=== PATIENT | male | born 1965 | race Native Hawaiian/Other Pacific Islander ===

== ENCOUNTER 2017-10-01 11:54 | Outpatient (CLI) | payer OTHER | END 2017-10-01 22:50 | disposition home or self-care (01) | LOC: RAD 11:54 | DX: M47.896 Other spondylosis, lumbar region (principal); Z02.71 Encounter for disability determination ==

== ENCOUNTER 2018-12-10 12:55 | Outpatient (CLI) | payer OTHER ==
[~2018-12-10] VITALS: Ht 177.8 cm; Wt 103.0 kg
[2018-12-10 13:10] VITALS: BP 147/94; TEMP 98.4
[2018-12-10 13:33] LABS: POTASSIUM 3.6 mmol/L (3.6-5.2); SODIUM 139 mmol/L (136-145)
== END 2018-12-10 14:30 | disposition home or self-care (01) ==
LOC: INF 12:55
PROVIDERS: Family Medicine
DX: E86.0 Dehydration (principal)
CPT/HCPCS: 36591; 80053; 82550; 82553; 84484; 96360

== ENCOUNTER 2019-08-15 01:21 | Emergency (ER) | payer OTHER ==
[~2019-08-15] VITALS: Ht 177.8 cm; Wt 106.6 kg
[2019-08-15 02:38] VITALS: BP 177/117; TEMP 98.2
== END 2019-08-15 02:38 | disposition home or self-care (01) ==
LOC: ED 01:21
DX: L03.116 Cellulitis of left lower limb (principal); L03.115 Cellulitis of right lower limb
CPT/HCPCS: 96372; 99283; J0696; J1200

== ENCOUNTER 2019-11-24 10:29 | Outpatient (CLI) | payer OTHER | END 2019-11-24 22:04 | disposition home or self-care (01) | LOC: RAD 10:29 | DX: S49.91XA Unspecified injury of right shoulder and upper arm, initial encounter (principal) ==

== ENCOUNTER 2019-11-25 18:17 | Emergency (ER) | payer OTHER ==
[~2019-11-25] VITALS: Ht 177.8 cm; Wt 104.3 kg
[2019-11-25 19:25] VITALS: BP 154/88; TEMP 98.2
== END 2019-11-25 19:25 | disposition home or self-care (01) ==
LOC: ED 18:17
DX: I10 Essential (primary) hypertension (principal); L02.416 Cutaneous abscess of left lower limb; B95.7 Other staphylococcus as the cause of diseases classified elsewhere
CPT/HCPCS: 99283

== ENCOUNTER 2020-02-06 11:00 | Emergency (ER) | payer OTHER ==
[~2020-02-06] VITALS: Ht 177.8 cm; Wt 102.1 kg
[2020-02-06 12:18] LABS: PLATELET COUNT 235 K/uL (142-355)
[2020-02-06 12:22] LABS: POTASSIUM 3.3 mmol/L (3.6-5.2)
[2020-02-06 16:07] VITALS: BP 145/82; TEMP 98
== END 2020-02-06 16:09 | disposition home or self-care (01) ==
LOC: ED 11:00
PROVIDERS: Family Medicine
PROC: 0H9KXZZ Drainage of Right Lower Leg Skin, External Approach (ICD-10-PCS; principal; 2020-02-06)
DX: L02.415 Cutaneous abscess of right lower limb (principal); R53.83 Other fatigue; E87.6 Hypokalemia
CPT/HCPCS: 36415; 80053; 81000; 82150; 83605; 83690; 85027; 87040; 87070; 87077; 87185; 87186; 87205; 96360; 96365; 99284; J2543; Q9963

== ENCOUNTER 2020-04-07 14:15 | Emergency (ER) | payer OTHER ==
[~2020-04-07] VITALS: Ht 177.8 cm; Wt 102.1 kg
[2020-04-07 15:38] VITALS: BP 139/94; TEMP 98.7
== END 2020-04-07 15:38 | disposition home or self-care (01) ==
LOC: ED 14:15
DX: L01.09 Other impetigo (principal)
CPT/HCPCS: 99282

== ENCOUNTER 2020-06-07 12:05 | Emergency (ER) | payer OTHER ==
[~2020-06-07] VITALS: Ht 177.8 cm; Wt 101.6 kg
[2020-06-07 13:04] VITALS: BP 169/89; TEMP 98
== END 2020-06-07 13:59 | disposition home or self-care (01) ==
LOC: ED 12:05
DX: R53.1 Weakness (principal)
CPT/HCPCS: 99281

== ENCOUNTER 2020-06-21 11:21 | Emergency (ER) | payer OTHER ==
[~2020-06-21] VITALS: Ht 177.8 cm; Wt 101.6 kg
[2020-06-21 11:50] LABS: PLATELET COUNT 138 K/uL (142-355)
[2020-06-21 11:59] LABS: POTASSIUM 4.2 mmol/L (3.6-5.2); SODIUM 132 mmol/L (136-145)
[2020-06-21 15:45] VITALS: BP 146/79; TEMP 98.9
== END 2020-06-21 15:45 | disposition home or self-care (01) ==
LOC: ED 11:21
PROVIDERS: Emergency Medicine Emergency Medical Services
DX: U07.1 COVID-19 (principal); K52.89 Other specified noninfective gastroenteritis and colitis; J20.8 Acute bronchitis due to other specified organisms; F17.210 Nicotine dependence, cigarettes, uncomplicated
CPT/HCPCS: 80053; 82150; 83690; 84484; 85027; 85379; 87040; 87502; 87635; 96361; 96365; 96375; 99284; J0696; J2270; J2405; J2930; J3490; Q9963; U0003

== ENCOUNTER 2020-09-01 23:42 | Emergency (ER) | payer OTHER ==
[~2020-09-01] VITALS: Ht 177.8 cm; Wt 101.6 kg
[2020-09-01 23:56] VITALS: BP 135/86; TEMP 98.4
[2020-09-02 01:02] LABS: PLATELET COUNT 165 K/uL (142-355)
[2020-09-02 01:09] LABS: POTASSIUM 3.7 mmol/L (3.6-5.2)
== END 2020-09-02 02:56 | disposition home or self-care (01) ==
LOC: ED 23:42
PROVIDERS: Family Medicine
DX: M62.82 Rhabdomyolysis (principal); E86.0 Dehydration
CPT/HCPCS: 36415; 80053; 82550; 83605; 85027; 96360; 96375; 99284; J1885; J2060

== ENCOUNTER 2020-11-12 11:56 | Outpatient (CLI) | payer OTHER | END 2020-11-12 20:07 | disposition home or self-care (01) | LOC: RAD 11:56 | PROVIDERS: ATTEND Nurse Practitioner Family | DX: M77.32 Calcaneal spur, left foot (principal) ==

== ENCOUNTER 2021-01-10 00:55 | Emergency (ER) | payer OTHER ==
[~2021-01-10] VITALS: Ht 177.8 cm; Wt 107.5 kg
[2021-01-10 02:44] VITALS: BP 138/90; TEMP 98
== END 2021-01-10 02:44 | disposition home or self-care (01) ==
LOC: ED 00:55
DX: S50.862A Insect bite (nonvenomous) of left forearm, initial encounter (principal); S50.861A Insect bite (nonvenomous) of right forearm, initial encounter; S80.862A Insect bite (nonvenomous), left lower leg, initial encounter; S80.861A Insect bite (nonvenomous), right lower leg, initial encounter; L23.7 Allergic contact dermatitis due to plants, except food; W57.XXXA Bitten or stung by nonvenomous insect and other nonvenomous arthropods, initial encounter; Y92.89 Other specified places as the place of occurrence of the external cause
CPT/HCPCS: 96372; 99284; J0696; J1200; J2930

== ENCOUNTER 2021-02-23 11:47 | Emergency (ER) | payer OTHER ==
[~2021-02-23] VITALS: Ht 177.8 cm; Wt 107.5 kg
[2021-02-23 11:56] VITALS: TEMP 96.8
[2021-02-23 12:45] VITALS: BP 144/84
== END 2021-02-23 12:48 | disposition home or self-care (01) ==
LOC: ED 11:47
DX: S20.469A Insect bite (nonvenomous) of unspecified back wall of thorax, initial encounter (principal); S30.860A Insect bite (nonvenomous) of lower back and pelvis, initial encounter; S80.862A Insect bite (nonvenomous), left lower leg, initial encounter; S80.861A Insect bite (nonvenomous), right lower leg, initial encounter; W57.XXXA Bitten or stung by nonvenomous insect and other nonvenomous arthropods, initial encounter; Y92.098 Other place in other non-institutional residence as the place of occurrence of the external cause
CPT/HCPCS: 99281

== ENCOUNTER 2021-03-25 02:05 | Emergency (ER) | payer OTHER ==
[~2021-03-25] VITALS: Ht 177.8 cm; Wt 102.1 kg
[2021-03-25 03:15] VITALS: BP 178/11; TEMP 98.2
== END 2021-03-25 03:15 | disposition home or self-care (01) ==
LOC: ED 02:05
DX: L03.818 Cellulitis of other sites (principal); I10 Essential (primary) hypertension; F43.9 Reaction to severe stress, unspecified
CPT/HCPCS: 96372; 99283; J0696

== ENCOUNTER 2021-11-04 19:13 | Emergency (ER) | payer OTHER ==
[~2021-11-04] VITALS: Ht 179.1 cm; Wt 98.0 kg
[2021-11-04] MEDS ORDERED: LISI5TAB10 PO (19:34)
[2021-11-04 19:52] LABS: PLATELET COUNT 202 K/uL (142-355)
[2021-11-04 20:01] LABS: POTASSIUM 3.2 mmol/L (3.6-5.2)
[2021-11-04 20:11] LABS: PARTIAL THROMBOPLASTIN TIME 25.2 SECONDS (24.5-33.6)
[2021-11-04 22:00] VITALS: BP 132/90; TEMP 98.1
== END 2021-11-04 22:00 | disposition home or self-care (01) ==
LOC: ED 19:13
PROVIDERS: Hospitalist
DX: E86.0 Dehydration (principal); R39.2 Extrarenal uremia; E87.6 Hypokalemia
CPT/HCPCS: 36415; 80053; 81000; 82550; 83880; 84484; 85027; 85610; 85730; 93005; 96360; 99284

== ENCOUNTER 2021-11-18 06:57 | Emergency (ER) | payer OTHER ==
[~2021-11-18] VITALS: Ht 179.1 cm; Wt 98.0 kg
[~2021-11-18 06:57] MED LIST: LISI5TAB10 PO
[2021-11-18 07:01] VITALS: BP 177/112; TEMP 97.5
[2021-11-18 07:37] LABS: PLATELET COUNT 190 K/uL (142-355)
== END 2021-11-18 08:00 | disposition home or self-care (01) ==
LOC: ED 06:57
PROVIDERS: Emergency Medicine
DX: F32.89 Other specified depressive episodes (principal); R21 Rash and other nonspecific skin eruption; M25.59 Pain in other specified joint
CPT/HCPCS: 36415; 80048; 80307; 85027; 99283

== ENCOUNTER 2022-05-12 23:21 | Emergency (ER) | payer OTHER ==
[~2022-05-12] VITALS: Ht 179.1 cm; Wt 104.3 kg
[2022-05-12 23:30] VITALS: BP 161/109; TEMP 97.3
== END 2022-05-13 00:57 | disposition left against medical advice (07) ==
LOC: ED 23:21
DX: Z53.29 Procedure and treatment not carried out because of patient's decision for other reasons (principal); M25.571 Pain in right ankle and joints of right foot; W18.09XA Striking against other object with subsequent fall, initial encounter; Y92.89 Other specified places as the place of occurrence of the external cause
CPT/HCPCS: 99283

== ENCOUNTER 2022-06-17 10:14 | Emergency (ER) | payer OTHER ==
[~2022-06-17] VITALS: Ht 179.1 cm; Wt 104.3 kg
[2022-06-17 10:21] VITALS: TEMP 97.9
[2022-06-17 11:11] LABS: PLATELET COUNT 230 K/uL (142-355)
[2022-06-17 11:18] LABS: POTASSIUM 4.6 mmol/L (3.6-5.2)
[2022-06-17 11:24] LABS: PARTIAL THROMBOPLASTIN TIME 27.1 SECONDS (24.5-33.6)
[2022-06-17 12:19] VITALS: BP 165/85
== END 2022-06-17 12:20 | disposition home or self-care (01) ==
LOC: ED 10:14
PROVIDERS: Emergency Medicine
DX: L03.113 Cellulitis of right upper limb (principal); R60.0 Localized edema
CPT/HCPCS: 36415; 80053; 85027; 85379; 85610; 85730; 96372; 99283; J0696

== ENCOUNTER 2022-12-08 09:22 | Emergency (ER) | payer OTHER ==
[~2022-12-08] VITALS: Ht 177.8 cm; Wt 93.0 kg
[2022-12-08 10:20] LABS: PLATELET COUNT 270 K/uL (142-355)
[2022-12-08 10:27] LABS: POTASSIUM 4.4 mmol/L (3.6-5.2)
[2022-12-08 10:30] LABS: PARTIAL THROMBOPLASTIN TIME 30.8 SECONDS (23.9-36.7)
[2022-12-08 12:45] VITALS: BP 142/96; TEMP 97.7
== END 2022-12-08 12:30 | disposition short-term general hospital (02) ==
LOC: ED 09:22
PROVIDERS: Family Medicine
DX: N17.9 Acute kidney failure, unspecified (principal)
CPT/HCPCS: 36415; 80053; 80307; 81002; 82150; 82550; 83690; 84100; 84484; 85027; 85610; 85730; 93005; 96360; 96361; 99284

== ENCOUNTER 2023-01-16 15:49 | Emergency (ER) | payer OTHER ==
[~2023-01-16] VITALS: Ht 177.8 cm; Wt 95.3 kg
[2023-01-16 15:50] VITALS: TEMP 97.9
[2023-01-16 16:28] LABS: PLATELET COUNT 244 K/uL (142-355)
[2023-01-16 16:38] LABS: POTASSIUM 3.7 mmol/L (3.6-5.2); SODIUM 138 mmol/L (136-145)
[2023-01-16 18:50] VITALS: BP 155/96
== END 2023-01-16 18:50 ==
LOC: ED 15:49
PROVIDERS: Family Medicine
DX: I10 Essential (primary) hypertension (principal); F19.90 Other psychoactive substance use, unspecified, uncomplicated; Z02.79 Encounter for issue of other medical certificate
CPT/HCPCS: 80053; 80143; 80179; 80307; 80320; 84484; 85027; 99284

== ENCOUNTER 2023-07-26 16:03 | Emergency (ER) | payer OTHER ==
[~2023-07-26] VITALS: Ht 177.8 cm; Wt 90.7 kg
[2023-07-26] MEDS ORDERED: Ondansetron HCl 4 MG INJ INJ ONE (16:20)
[2023-07-26 16:30] LABS: PLATELET COUNT 214 K/uL (142-355)
[2023-07-26 16:39] LABS: POTASSIUM 3.8 mmol/L (3.6-5.2)
[2023-07-26] MEDS ORDERED: HYDRALAZINE HCL 20 MG INJ INJ ONE (18:56)
[2023-07-26] MEDS ORDERED: CLONIDINE HCL 0.1 MG TAB PO ONE ×2 (18:57→18:58)
[2023-07-26] MEDS ORDERED: HYDRALAZINE HCL IV ONE (18:58)
[2023-07-26 20:45] VITALS: BP 165/101
== END 2023-07-26 20:45 | disposition still patient (30) ==
LOC: ED 16:03
PROVIDERS: Internal Medicine Endocrinology, Diabetes & Metabolism
DX: K29.70 Gastritis, unspecified, without bleeding (principal); B34.9 Viral infection, unspecified
CPT/HCPCS: 80053; 81002; 83690; 84484; 85027; 93005; 96374; 96375; 96376; 99284; J0360; J2405; Q9963